=== PATIENT | male | born 1975 | race Caucasian/White ===

== ENCOUNTER 2021-07-01 00:14 | Inpatient (IN) | payer OTHER ==
[2021-07-01] MEDS ORDERED: HEPARIN SODIUM 1,000 UN/ML (10ML VL) IV PRN (00:27)
[2021-07-01] MEDS ORDERED: HYDROmorphone 0.5 MG/0.5 ML SYRINGE IVP STA (00:27)
[2021-07-01] MEDS ORDERED: NITROGLYCERIN-D5W PMX 50 MG in DEXTROSE/WATER 1 250ML.BAG IV ONE ×2 (00:29→08:19)
[2021-07-01] MEDS ORDERED: HEPARIN SOD,PORK IN 0.45% NACL 25,000 UNIT in 0.45% NACL 1 250ML.BAG IV SCH (00:30)
--- NOTE | 2021-07-01 00:35 | ED ---
Chest Pain HPI - General Chief Complaint: Chest Pain Stated Complaint: Possible STEMI Time Seen by Provider: 07/01/21 00:27 Source: patient, EMS Mode of arrival: EMS - History of Present Illness Initial Comments: This patient is a 46-year-old man presenting here as a transfer from [facility]. The patient had gone there tonight for chest pain. He arrived there little left are 10 PM. The patient states that he does get chronic intermittent chest pains but this was different in that it was associated with some nausea and diaphoresis. Patient states the pain was 8 out of 10. The patient did have ECG there that showed ST elevations in the anterior leads and he received TNKase 35 mg. Patient was then transferred on heparin drip and nitroglycerin drip. The patient states that his pain has gone down to a 1 out of 10. He states that his nausea and diaphoresis have resolved. The patient does admit to smoking approximately pack and a half of cigarettes per day. MD Complaint: chest pain Onset/Timin -: hour(s) Onset: during rest Pain Location: substernal Pain Radiation: none Severity: severe Severity scale (1-10): 1 Quality: other (Burning) Consistency: constant Improves With: nitroglycerin, medication-other, other Worsens With: nothing Anginal Symptoms: nausea Treatments Prior to Arrival: aspirin, nitroglycerin, other - Related Data On Oral Contraceptives: No Allergies Allergy/AdvReac Type Severity Reaction Status Date / Time No Known Allergies Allergy Verified 07/01/21 00:28 Review of Systems ROS Statement: Those systems with pertinent positive or pertinent negative responses have been documented in the HPI. ROS Other: All systems not noted in ROS Statement are negative. Constitutional: Denies: fever, chills Respiratory: Denies: cough, dyspnea Cardiovascular: Reports: chest pain. Denies: palpitations, orthopnea, edema, syncope Gastrointestinal: Reports: nausea. Denies: abdominal pain, vomiting, diarrhea, melena, hematochezia Genitourinary: Denies: dysuria, hematuria Musculoskeletal: Denies: back pain Skin: Denies: rash Neurological: Denies: headache, weakness Hematological/Lymphatic: Denies: easy bleeding EKG Findings - EKG Comments: EKG Findings:: Q waves in septal leads. T inversions in inferior leads and V4 through V6. - EKG Results: EKG: interpreted by ERMD - Blocks, [place], Hypertrophy, ST Abn: QRS axis and voltage: right axis deviation (+90 to +180) Past Medical History Past Medical History: No Reported History History of Any Multi-Drug Resistant Organisms: None Reported Past Surgical History: No Surgical Hx Reported Past Psychological History: No Psychological Hx Reported Smoking Status: Current every day smoker Past Alcohol Use History: Occasional Past Drug Use History: Cocaine, Marijuana General Exam General appearance: alert, in no apparent distress Head exam: Present: atraumatic, normocephalic Eye exam: Present: normal appearance. Absent: scleral icterus, conjunctival injection ENT exam: Present: normal oropharynx Neck exam: Present: normal inspection Respiratory exam: Present: normal lung sounds bilaterally. Absent: respiratory distress, wheezes, rales, rhonchi, stridor Cardiovascular Exam: Present: regular rate, normal rhythm, normal heart sounds. Absent: systolic murmur, diastolic murmur, rubs, gallop GI/Abdominal exam: Present: soft. Absent: distended, tenderness, guarding, rebound, rigid, mass Extremities exam: Present: normal inspection, normal capillary refill. Absent: pedal edema, calf tenderness Back exam: Present: normal inspection. Absent: CVA tenderness (R), CVA tenderness (L) Neurological exam: Present: alert Skin exam: Present: warm, dry, intact, normal color. Absent: rash Course Vital Signs 07/01/21 00:22 Temperature 98 F Pulse Rate 91 Respiratory 19 Rate Blood Pressure 135/107 O2 Sat by Pulse 99 Oximetry - Reevaluation(s) Reevaluation #1: 07/01/21 00:[address] Taveras. His treatment recommendations are incorporated. They plan to take patient to [facility] first thing in the morning unless his pain intensifies. Disposition Referrals: None,Stated [Primary Care Provider] - 1-2 days
[2021-07-01 00:45] LABS: Basophils # (A) 0.1 k/uL (0-0.2); Basophils % (A) 1 %; Eosinophils # (A) 0.2 k/uL (0-0.7); Eosinophils % (A) 2 %; HCT 43.3 % (39.0-53.0); HGB 14.3 gm/dL (13.0-17.5); Lymphocytes # (A) 1.7 k/uL (1.0-4.8); Lymphocytes % (A) 15 %; MCH 28.9 pg (25.0-35.0); MCV 87.6 fL (80.0-100.0); Monocytes # (A) 0.4 k/uL (0-1.0); Monocytes % (A) 4 %; Neutrophils % (A) 78 %; Platelet Count 195 k/uL (150-450); RBC 4.94 m/uL (4.30-5.90); RDW 13.3 % (11.5-15.5); WBC 11.5 k/uL (3.8-10.6)
[2021-07-01] MEDS ORDERED: METOPROLOL TARTRATE 25 MG TAB PO STA (00:52)
[2021-07-01] MEDS ORDERED: NITROGLYCERIN SL TABS 0.4 MG TAB SUBLINGUAL PRN ×2 (00:54→08:56)
[2021-07-01 00:58] LABS: Prothrombin Time 10.4 sec (9.0-12.0)
[2021-07-01 02:42] LABS: Glucose,Whole Blood 123 mg/dL (75-99)
--- NOTE | 2021-07-01 05:29 | P.HPIM ---
History of Present Illness H&P Date: 07/01/21 Chief Complaint: STEMI 46-year-old male denies any significant past medical history Patient was transferred to a facility from [facility] where he was diagnosed with STEMI he was given TKnase which helped with his chest pain initially was 8 out of 10 in severity dropped to 1, then he was started on heparin drip and nitro drip and was sent to or facility. Radiology consult and recommended left heart cath in the morning Patient claims that he was having intermittent chest pain most epigastric he thought these or indigestion usually not associated with activity. However he does admit to using cocaine occasionally last time he used cocaine was 3-4 days ago. He also admits to heavy tobacco smoking. He denies any other medical history denies any cardiac history or any cardiac workup in the past. Denies any diabetes. However his mom does have diabetes mellitus. With the chest pain patient was experiencing diaphoresis and nausea and heavy breathing. He denies any coughing fevers or chills he denies any trauma denies any recent traveling denies any recent hospitalization denies any abdominal pain changes in his urine or bowel habits Patient was tested for Covid and was negative EKG at our facility still showing T-wave inversion in the inferolateral leads Review of Systems Pertinent positives as noted in HPI. All other systems were reviewed and are negative Past Medical History Past Medical History: GERD/Reflux History of Any Multi-Drug Resistant Organisms: None Reported Past Surgical History: Orthopedic Surgery Additional Past Surgical History / Comment(s): (L) Wrist surg 07/2020 with ORIF (Hardware present Past Anesthesia/Blood Transfusion Reactions: No Reported Reaction Past Psychological History: ADD/ADHD, Depression Smoking Status: Current every day smoker Past Alcohol Use History: Rare Additional Past Alcohol Use History / Comment(s): Quit at age 35 yrs. Past Drug Use History: Cocaine, Marijuana - Past Family History Mother Family Medical History: Diabetes Mellitus Additional Family Medical History / Comment(s): Some type of "gut issue" current being diagnosed. Maternal grandfather had Lung CA with transplant. Medications and Allergies Allergies Allergy/AdvReac Type Severity Reaction Status Date / Time No Known Allergies Allergy Verified 07/01/21 00:28 Physical Exam Vitals: Vital Signs Temp Pulse Resp BP Pulse Ox 07/01/21 01:58 73 19 131/97 97 07/01/21 00:22 98 F 91 19 135/107 99 Intake and Output 06/30/21 06/30/21 07/01/21 14:59 22:59 06:59 Other: Weight 71.5 kg Constitutional: No acute distress, conversant, pleasant Eyes: Anicteric sclerae, moist conjunctiva, Pupils equal round reactive to light ENMT: NC/AT Oropharynx clear, no erythema, or exudates Neck: Supple, FROM, no masses, or JVD No carotid bruits No thyromegaly Lungs: Clear to auscultation Clear to percussion Normal respiratory effort, no accessory muscle use Cardiovascular: Heart regular in rate and rhythm, No murmurs, gallops, or rubs No peripheral edema Abdominal: Soft Nontender, no guarding, rebound or rigidity Abdomen moving with respiration Normoactive bowel sounds No hepatomegaly, No splenomegaly No palpable mass No abdominal wall hernia noted Skin: Normal temperature, tone, texture, turgor No induration No subcutaneous nodules No rash, lesions No ulcers Extremities: No digital cyanosis No clubbing Pedal pulses intact and symmetrical Radial pulses intact and symmetrical No calf tenderness Psychiatric: Alert and oriented to person, place and time Appropriate affect fair judgement Neuro Muscles Strength 5/5 in all 4 extremities Sensation to light touch grossly present throughout Cranial nerves II-XII grossly intact No focal sensory deficits Lymphatics: no palpable cervical or supraclavicular , or inguinal lymph nodes Results CBC & Chem 7: 07/01/21 00:38 Labs: Abnormal Lab Results - Last 24 Hours (Table) 07/01/21 07/01/21 07/01/21 Range/Units 00:38 00:38 02:09 WBC 11.5 H (3.8-10.6) k/uL Neutrophils # 9.0 H (1.3-7.7) k/uL APTT 58.0 H (22.0-30.0) sec POC Glucose (mg/dL) (75-99) mg/dL Troponin I 92.700 H* (0.000-0.034) ng/mL 07/01/21 Range/Units 02:40 WBC (3.8-10.6) k/uL Neutrophils # (1.3-7.7) k/uL APTT (22.0-30.0) sec POC Glucose (mg/dL) 123 H (75-99) mg/dL Troponin I (0.000-0.034) ng/mL Thrombosis Risk Factor Assmnt - Choose All That Apply Each Factor Represents 1 point: Age 41-60 years Other Risk Factors: No Other congenital or acquired thrombophilia - If yes, enter type in comment: No Thrombosis Risk Factor Assessment Total Risk Factor Score: 1 Thrombosis Risk Factor Assessment Level: Low Risk Assessment and Plan Assessment: STEMI Polysubstance abuse GERD Patient status post TKnase Cardiology eval planned left heart cath in the morning Aspirin and statin Beta salvador, lisinopril Heparin drip Nitro drip Monitor vital signs Cardiac telemetry Elevated troponins EKG showed T wave inversion in inferior lateral leads Avoid nicotine replacement therapy until after left heart cath due to possibility of increase cardiac oxygen demand and heartrate Check urine drug screen PPI twice a day Anticipated length of stay more than 2 midnights anticipated discharge to home DVT PPX on heparin drip per [facility]
[2021-07-01] MEDS ORDERED: CALCIUM CARBONATE LIQUID 500 MG/5 ML CUP PO PRN (06:40)
[2021-07-01] MEDS: ACETAMINOPHEN TAB 325 MG TAB PO PRN ×2 (06:45→11:58)
[2021-07-01] MEDS ORDERED: ASPIRIN 81 MG PO STA (06:53)
[2021-07-01] MEDS ORDERED: ATORVASTATIN 80 MG TAB PO STA (06:54)
[2021-07-01] MEDS ORDERED: HEPARIN SODIUM,PORCINE 10,000 UNIT in SODIUM CHLORIDE 0.9% 1,000 ML IRRIGATION PRN (07:00)
[2021-07-01] MEDS: PANTOPRAZOLE 40 MG TABLET PO SCH ×2 (07:00→18:21)
[2021-07-01] MEDS ORDERED: HEPARIN SODIUM,PORCINE 2,500 UNIT in SODIUM CHLORIDE 0.9% 250 ML IRRIGATION PRN (07:00)
[2021-07-01] MEDS ORDERED: ASPIRIN 325 MG TAB PO STA (07:11)
[2021-07-01] MEDS ORDERED: ALPRAZolam 0.25 MG TAB PO PRN (07:11)
[2021-07-01] MEDS ORDERED: SODIUM CHLORIDE 0.9% 1,000 ML in EMPTY BAG 1 BAG IV ONE (07:11)
[2021-07-01] MEDS ORDERED: ALPRAZolam 0.5 MG TAB PO PRN (07:11)
--- NOTE | 2021-07-01 07:32 | P.CRDCN ---
History of Present Illness History of present illness: This is Dr. Taveras dictating a consult on this patient The patient was interviewed and examined IMPRESSION / ASSESSMENT: Anterolateral ST elevation DC Received thrombolytic therapy at [place] [facility] resolution of chest discomfort with improvement in EKGs and development of reperfusion arrhythmia with aVR His pain improved in 30 minutes following thrombolytic therapy Regular cocaine and marijuana use, last cocaine use Monday Current smoker No family history of premature CAD No known hypertension or diabetes PLAN: I discussed this with the patient as well as with Dr. Lizarraga We will be proceeding to the chronic Wet [employer] Machine to and possible coronary stenting Antiplatelet therapy, heparin, statins and beta blockers HPI this is a 46-year-old male patient who started experiencing chest discomfort yesterday while sitting on the couch. He went to [facility] He received TNKtpa thrombolytic therapy for ST elevation anterolateral DC I received a call from the ER saying that this gentleman was being transferred from [place] to our ER Later when he arrived his ST segments have improved according to the ER physician Dr. Gonsales. He had minimal discomfort in the mid chest a significant improvement from when he started experiencing chest discomfort. When I evaluated him he was complaining of minimal discomfort 110 in the mid chest He said that after he received the clotbusting agent it took about 30 minutes with the pain to subside but thereafter he has not had any worsening of pain His heart rate and blood pressure are normal He is resting comfortably in bed he has no respiratory distress He denies any history of hypertension or diabetes but he does not see any physician He smoker He uses cocaine and marijuana Last cocaine use was last Monday ROS: No fever chills or rigors, no cough, phlegm or expectoration, no nausea, vomiting or diarrhea, no hematuria, dysuria, no musculoskeletal complaints, no strokes or seizures, no skin lesions. EXAMINATION: Pulse rate in the 70s, blood pressure 140/80 mmHg stable Heart sounds are normal normal S1 normal S2 no murmurs or gallops or rub Breath sounds are clear no rhonchi no crackles Abdomen soft nontender Extremities warm no edema No JVD No orthopnea REVIEW OF LABS, ECG & MEDICAL DATA Coronavirus PCR negative Elevated troponins 22 and 125 consistent with successful thrombolytic therapy with a troponin was up Past Medical History Past Medical History: GERD/Reflux History of Any Multi-Drug Resistant Organisms: None Reported Past Surgical History: Orthopedic Surgery Additional Past Surgical History / Comment(s): (L) Wrist surg 07/2020 with ORIF (Hardware present Past Anesthesia/Blood Transfusion Reactions: No Reported Reaction Past Psychological History: ADD/ADHD, Depression Smoking Status: Current every day smoker Past Alcohol Use History: Rare Additional Past Alcohol Use History / Comment(s): Quit at age 35 yrs. Past Drug Use History: Cocaine, Marijuana - Past Family History Mother Family Medical History: Diabetes Mellitus Additional Family Medical History / Comment(s): Some type of "gut issue" current being diagnosed. Maternal grandfather had Lung CA with transplant. Medications and Allergies Allergies Allergy/AdvReac Type Severity Reaction Status Date / Time No Known Allergies Allergy Verified 07/01/21 00:28 Physical Exam Vitals: Vital Signs Temp Pulse Resp BP Pulse Ox 07/01/21 06:30 75 17 129/91 95 07/01/21 06:00 71 14 123/98 95 07/01/21 05:30 59 L 14 122/94 95 07/01/21 05:00 67 11 L 123/92 97 07/01/21 04:30 66 12 114/80 96 07/01/21 04:00 65 13 121/85 96 07/01/21 03:30 97.9 F 70 10 L 120/91 99 07/01/21 03:00 78 15 119/85 97 07/01/21 01:58 73 19 131/97 97 07/01/21 00:22 98 F 91 19 135/107 99 Intake and Output 06/30/21 07/01/21 07/01/21 22:59 06:59 14:59 Intake Total 218.55 Output Total 0 Balance 218.55 Intake: IV 200 0.9 NaCl- 200 Intake, IV Titration 18.55 Amount Nitroglycerin-D5w Pmx 50 18.55 mg In Dextrose/Water 1 250ml.bag @ 10 MCG/MIN 3 mls/hr IV .Q24H ONE Rx#: [id number] Oral 0 Output: Urine 0 Other: Weight 71.5 kg Results 07/01/21 00:38 Cardiac Enzymes 07/01/21 07/01/21 Range/Units 02:09 03:31 Troponin I 92.700 H* 125.000 H* (0.000-0.034) ng/mL Coagulation 07/01/21 07/01/21 Range/Units 00:38 06:30 PT 10.4 (9.0-12.0) sec APTT 58.0 H 27.5 (22.0-30.0) sec CBC 07/01/21 Range/Units 00:38 WBC 11.5 H (3.8-10.6) k/uL RBC 4.94 (4.30-5.90) m/uL Hgb 14.3 (13.0-17.5) gm/dL Hct 43.3 (39.0-53.0) % Plt Count 195 (150-450) k/uL Current Medications Generic Name Dose Route Start Last Admin Trade Name Freq PRN Reason Stop Dose Admin Acetaminophen 650 mg 07/01/21 06:40 07/01/21 06:45 Acetaminophen Tab 325 Mg Tab PO 650 mg Q4HR PRN Administration Fever and/ or Pain Alprazolam 0.25 mg 07/01/21 07:11 Alprazolam 0.25 Mg Tab PO Q6HR PRN Mild Anxiety Alprazolam 0.5 mg 07/01/21 07:11 Alprazolam 0.5 Mg Tab PO Q6HR PRN Moderate Anxiety Aspirin 81 mg 07/02/21 09:00 Aspirin 81 Mg PO DAILY [facility] Atorvastatin Calcium 80 mg 07/02/21 21:00 Atorvastatin 80 Mg Tab PO HS [facility] Calcium Carbonate/Glycine 500 mg 07/01/21 06:40 Calcium Carbonate Liquid 500 Mg/5 Ml Cup PO ACHS PRN Heartburn Heparin Sodium (Porcine) 0 unit 07/01/21 00:27 Heparin Sodium 1,000 Un/Ml (10ml Vl) IV PER PROTOCOL PRN Low PTT Protocol Heparin Sodium/Sodium Chloride 250 mls @ 8.165 mls/hr 07/01/21 00:30 07/01/21 01:01 25,000 unit/ Sodium Chloride IV 12 units/kg/hr .Q24H HEATHER 8.165 mls/hr Administration Protocol 12 UNITS/KG/HR Nitroglycerin/Dextrose 50 mg/ 250 mls @ 3 mls/hr 07/01/21 00:29 07/01/21 06:59 IV Solution IV 07/02/21 00:28 5 mcg/min .Q24H ONE 1.5 mls/hr Titration Protocol 10 MCG/MIN Heparin Sodium (Porcine) 10, 1,001 mls @ 999 mls/hr 07/01/21 07:00 000 unit/ Sodium Chloride IRRIGATION 07/01/21 20:00 ONCE PRN INTRA-OP Heparin Sodium (Porcine) 2,500 250.5 mls @ 250 mls/hr 07/01/21 07:00 unit/ Sodium Chloride IRRIGATION 07/01/21 20:00 ONCE PRN INTRA-OP Lisinopril 10 mg 07/01/21 09:00 Lisinopril 10 Mg Tab PO DAILY [facility] Metoprolol Tartrate 25 mg 07/01/21 09:00 Metoprolol Tartrate 25 Mg Tab PO BID [facility]ATHER Nitroglycerin 0.4 mg 07/01/21 00:54 Nitroglycerin Sl Tabs 0.4 Mg Tab SUBLINGUAL Q5M PRN Chest Pain Pantoprazole Sodium 40 mg 07/01/21 07:30 07/01/21 07:00 Pantoprazole 40 Mg Tablet PO 40 mg AC-BID HEATHER Administration Intake and Output 06/30/21 07/01/21 07/01/21 22:59 06:59 14:59 Intake Total 218.55 Output Total 0 Balance 218.55 Intake: IV 200 0.9 NaCl- 200 Intake, IV Titration 18.55 Amount Nitroglycerin-D5w Pmx 50 18.55 mg In Dextrose/Water 1 250ml.bag @ 10 MCG/MIN 3 mls/hr IV .Q24H ONE Rx#: [id number] Oral 0 Output: Urine 0 Other: Weight 71.5 kg 07/01/21 00:38
[2021-07-01] MEDS ORDERED: HEPARIN SODIUM 1,000 UN/ML (10ML VL) ONE (07:53)
[2021-07-01] MEDS ORDERED: fentaNYL (PF) 50 MCG/ML 2 ML AMP ONE (07:54)
[2021-07-01] MEDS ORDERED: ONDANSETRON 4 MG/2 ML VIAL IVP ONE (08:02)
[2021-07-01] MEDS ORDERED: IV FLUID CONTINUATION 800 ML IV ONE (08:03)
[2021-07-01] MEDS ORDERED: fentaNYL (PF) 50 MCG/ML 2 ML AMP IV ONE (08:07)
[2021-07-01] MEDS ORDERED: LIDOCAINE 1% INJ 10MG/ML (20 ML MDV) SQ ONE (08:08)
[2021-07-01] MEDS ORDERED: VERAPAMIL SYRINGE (5 MG/10 ML) INTRAARTER ONE (08:10)
[2021-07-01] MEDS ORDERED: MIDAZOLAM 2 MG/2 ML VIAL IV ONE (08:14)
[2021-07-01] MEDS ORDERED: CLOPIDOGREL 75 MG TAB ONE (08:22)
[2021-07-01] MEDS ORDERED: CLOPIDOGREL 75 MG TAB PO ONE (08:24)
[2021-07-01] MEDS: HEPARIN SODIUM 1,000 UN/ML (10ML VL) IV ONE ×2 (08:24→08:32)
[2021-07-01] MEDS ORDERED: IOPAMIDOL-370 125ML BTL INJ ONE (08:36)
[2021-07-01] MEDS ORDERED: ATROPINE SULFATE 0.1 MG/ML 10ML SYRINGE IV PRN (08:56)
[2021-07-01] MEDS ORDERED: MAG HYDROX/AL HYDROX/SIMETH 30 ML CUP PO PRN (08:56)
[2021-07-01] MEDS ORDERED: ZOLPIDEM 5 MG TAB PO PRN (08:56)
[2021-07-01] MEDS ORDERED: RX INFO: IV CONTRAST WAS GIVEN 1 EACH MISC MISCELLANE PRN (08:56)
[2021-07-01] MEDS ORDERED: lisinopriL 10 MG TAB PO SCH (09:00)
[2021-07-01] MEDS ORDERED: SODIUM CHLORIDE 0.9% 1,000 ML IV SCH (09:00)
[2021-07-01] MEDS: lisinopriL 5 MG TAB PO SCH (10:16)
[2021-07-01] MEDS: METOPROLOL TARTRATE 25 MG TAB PO SCH ×2 (10:16→20:11)
[2021-07-01] MEDS: SPIRONOLACTONE 25 MG TAB PO SCH (10:16)
[2021-07-01] MEDS: ASPIRIN 81 MG PO SCH (10:16)
--- NOTE | 2021-07-01 10:46 | CC ---
CARDIAC CATHETERIZATION REPORT Mr. Greene is a 46-year-old male with known history of chronic tobacco use, history of drug use, who presented to [facility] with an acute anterior myocardial infarction, received thrombolytics and was transferred to [facility]. He was evaluated by Dr. Taveras, was having persistent chest discomfort. In view of that, recommendation was made regarding cardiac catheterization. The procedure as well as the risks and the complications were discussed with the patient who is in full understanding and agreement. DESCRIPTION OF PROCEDURE: Patient was brought to laboratory helper. He was prepped and draped in conventional fashion. He received Benadryl and fentanyl, achieved moderate conscious state. Following that, using Xylocaine anesthesia and Seldinger technique, a 6-Honduran sheath was introduced in the right radial artery. Selective right and left coronary angiography performed using 5-Honduran 3.5 bend right and left Marcelo catheter. Multiple views of the coronary artery including hemiaxial views were obtained. Following that, angioplasty and stenting was performed. Following that, a 5-Honduran tight pigtail catheter was introduced into the left ventricle and left ventricular end-diastolic pressure was calculated. Following that, catheter and sheath were removed. Hemostasis was obtained with deployment of a TR band. There was no immediate complication. Patient is returned to his room in stable condition. Of note, the patient received intra-arterial verapamil. FINDINGS: LEFT MAIN: This is a large-sized vessel bifurcating into left circumflex, left anterior descending coronary artery, left main artery has no evidence of high-grade stenosis. LEFT ANTERIOR DESCENDING ARTERY: This is a large-sized vessel reaching towards the apex with a wraparound apex segment giving rise to 2 diagonal branches. The left anterior descending artery proximally has an eccentric hazy 90% plaque. The rest of the vessel has no high-grade stenosis. LEFT CIRCUMFLEX: This is a nondominant vessel giving rise to the obtuse marginal branches. The left circumflex as well as branches have no evidence of obstructive disease. RIGHT CORONARY ARTERY: This is a large dominant vessel bifurcating into PDA and posterolateral segment branches. The right coronary artery as well as branches have no evidence of obstructive disease. LEFT VENTRICULOGRAM: Left ventriculogram not performed. HEMODYNAMICS: There was no gradient across the aortic valve. The left ventricular end diastolic pressure was 32-36 mmHg. CONCLUSION: 1. Severe disease involving the proximal LAD in a hazy area. 2. Right dominance. 3. Elevated left ventricular end-diastolic pressure. RECOMMENDATIONS: In view of findings and anatomy, I recommend proceeding with angioplasty and stenting of the LAD. The procedure as well as the risks and the complications were discussed with the patient who is in full understanding and agreement. RAISA / NEO: [id number] /
--- NOTE | 2021-07-01 10:46 | PTCA ---
PERCUTANEOUSTRANS CORORONARY ANGIOGRAPHY Mr. Greene is a 46-year-old male with known history of chronic tobacco use and drug abuse, who presented with an acute myocardial infarction, received thrombolytics and was transferred to [facility] because of the persistent symptoms. He underwent cardiac catheterization and was found to have a critical stenosis involving the proximal LAD. Recommendation was made regarding angioplasty and stenting. The procedure as well as the risks and the complications were discussed with the patient who is in full understanding and agreement. PROCEDURE: A Six-[place] Islander FL 3 and half guiding catheter was introduced into the system. After stenting the left main, a 0.014 balanced medium weight J-wire was advanced across the lesion and positioned distally. Then a 4.0 x 15 mm Xience stent was advanced, deployed and post-dilated at 16 atmospheres. After the last inflation, after appropriate wait, the balloon and the guidewire were withdrawn back in the guiding catheter. Images were obtained repeated. Those images reveal stable successful stenting. At that point, the guiding catheter, the balloon and the guidewire were removed. The left ventricular end- diastolic pressure was calculated. Following that, catheter and sheath were removed. Hemostasis was obtained with deployment of TR band. There was no immediate complication. Patient was returned to his room in stable condition. Of note, the patient received a total of 8000 units of intravenous heparin during the procedure. His ACT was followed and he received 300 mg of oral loading dose of clopidogrel. RESULTS: Successful stenting of the proximal LAD with reduction of stenosis from 90% to 0%. RECOMMENDATIONS: Patient will be continued on aspirin, Plavix, beta salvador, AISSATOU inhibitor, statin. The importance of dual antiplatelet treatment was discussed with the patient. He is in full understanding and agreement. Duration of sedation is 35 minutes. MMODL / IJN: [id number] /
[2021-07-01 11:19] VITALS: BMI 20.7
--- NOTE | 2021-07-01 11:32 | P.PN ---
Progress Note - Text Progress Note Date: 07/01/21 I saw and evaluated the patient independently today. I agree with the documented assessment and plan by my colleague earlier this morning. Pt is s/p LHC with JOSH to LAD, doing well in sinus rhythm with minimal complaints of pain. Reports significant improvement. Ongoing ASA/Plavix, statin, beta-salvador. Pending echo. Continued monitoring in ICU. Radial band in place on right.
[2021-07-01] MEDS ORDERED: ONDANSETRON 4 MG/2 ML VIAL IVP PRN (16:23)
[2021-07-01] MEDS ORDERED: ATORVASTATIN 40 MG TAB PO SCH (21:00)
[2021-07-01 23:51] LABS: LDL Cholesterol,Calculated 95.2 mg/dL (0.0-131.0); VLDL Calculation 15.8 mg/dL (5.00-40.00)
[2021-07-02 04:26] LABS: African American GFR (CKD) >90 (>60 ml/min/1.73 sqM); Anion Gap 4 mmol/L; Blood Urea Nitrogen 7 mg/dL (9-20); Calcium 8.9 mg/dL (8.4-10.2); Carbon Dioxide 29 mmol/L (22-30); Chloride 103 mmol/L (98-107); Glucose 125 mg/dL (74-99); Non-African American GFR(CKD) >90 (>60 ml/min/1.73 sqM); Potassium 3.9 mmol/L (3.5-5.1); Prothrombin Time 10.6 sec (9.0-12.0); Sodium 136 mmol/L (137-145)
[2021-07-02 04:35] LABS: Basophils # (A) 0.1 k/uL (0-0.2); Basophils % (A) 1 %; Eosinophils # (A) 0.2 k/uL (0-0.7); Eosinophils % (A) 2 %; HCT 45.3 % (39.0-53.0); HGB 15.1 gm/dL (13.0-17.5); Lymphocytes # (A) 2.7 k/uL (1.0-4.8); Lymphocytes % (A) 26 %; MCH 28.5 pg (25.0-35.0); MCHC 33.4 g/dL (31.0-37.0); MCV 85.5 fL (80.0-100.0); Mean Platelet Volume 8.3; Monocytes # (A) 0.6 k/uL (0-1.0); Monocytes % (A) 6 %; Neutrophils # (A) 6.6 k/uL (1.3-7.7); Neutrophils % (A) 64 %; Platelet Count 223 k/uL (150-450); RDW 13.8 % (11.5-15.5); WBC 10.3 k/uL (3.8-10.6)
[2021-07-02] MEDS: PANTOPRAZOLE 40 MG TABLET PO SCH ×2 (06:56→17:01)
[2021-07-02] MEDS: METOPROLOL TARTRATE 25 MG TAB PO SCH ×2 (08:21→20:26)
[2021-07-02] MEDS: CLOPIDOGREL 75 MG TAB PO SCH (08:22)
[2021-07-02] MEDS: ASPIRIN 81 MG PO SCH (08:22)
[2021-07-02] MEDS: lisinopriL 5 MG TAB PO SCH (08:22)
[2021-07-02] MEDS: SPIRONOLACTONE 25 MG TAB PO SCH (08:23)
--- NOTE | 2021-07-02 08:41 | ECHOF ---
Referral Reason:mi MEASUREMENTS -------- HEIGHT: 185.4 cm WEIGHT: 66.2 kg BP: 113/90 RVIDd: 3.2 cm (< 3.3) IVSd: 1.1 cm (0.6 - 1.1) LVIDd: 4.6 cm (3.9 - 5.3) LVPWd: 1.1 cm (0.6 - 1.1) IVSs: 1.1 cm LVIDs: 3.4 cm LVPWs: 1.4 cm LAESV Index (A-L): 16.16 ml/m Ao Diam: 2.5 cm (2.0 - 3.7) AV Cusp: 1.7 cm (1.5 - 2.6) LA Diam: 2.7 cm (2.7 - 3.8) MV EXCURSION: 13.874 mm (> 18.000) MV EF SLOPE: 107 mm/s (70 - 150) EPSS: 1.1 cm MV E Cedrick: 0.71 m/s MV DecT: 131 ms MV A Cedrick: 0.92 m/s MV E/A Ratio: 0.77 RAP: 5.00 mmHg RVSP: 14.26 mmHg FINDINGS -------- Sinus rhythm. This was a technically adequate study. The left ventricular size is normal. Left ventricular wall thickness is normal. Overall left vent ricular systolic function is mild-moderately impaired with, an EF between 40 - 45 %. The diastolic filling pattern indicates impaired relaxation 10.04. Mid anterior LV wall motion is hypokinetic. Apical anterior LV wall motion is hypokinetic. Apical lateral LV wall motion is hypokinetic. A pical septum LV wall motion is hypokinetic. The right ventricle is normal in size. Normal LA size by volume 22+/-6 ml/m2. The right atrial size is normal. Interatrial and interventricular septum intact. The aortic valve is trileaflet, and appears structurally normal. No aortic stenosis or regurgitation. The mitral valve is normal. There is trace to mild mitral regurgitation. The tricuspid valve appears structurally normal. Mild tricuspid regurgitation present. Right vent ricular systolic pressure is normal at < 35 mmHg. The right ventricular systolic pressure, as measu red by Doppler, is 14.26mmHg. There is no pulmonic regurgitation present. The aortic root size is normal. Normal inferior vena cava with normal inspiratory collapse consistent with estimated right atrial pre ssure of 5 mmHg. There is no pericardial effusion. CONCLUSIONS -------- 1. Left ventricular wall thickness is normal. 2. Overall left ventricular systolic function is mild-moderately impaired with, an EF between 40 - 45 %. 3. Mid anterior LV wall motion is hypokinetic. 4. Apical anterior LV wall motion is hypokinetic. 5. Apical lateral LV wall motion is hypokinetic. 6. Apical septum LV wall motion is hypokinetic. 7. Normal LA size by volume 22+/-6 ml/m2. 8. The aortic valve is trileaflet, and appears structurally normal. No aortic stenosis or regurgitati on. 9. There is trace to mild mitral regurgitation. 10. Mild tricuspid regurgitation present. JETTING MACHINE OPERATOR: Misty Hodges RDCS
[2021-07-02] MEDS ORDERED: ASPIRIN 81 MG PO SCH (09:00)
[2021-07-02] MEDS ORDERED: ASPIRIN 325 MG TAB PO SCH (09:00)
--- NOTE | 2021-07-02 09:22 | P.PN ---
Subjective Progress Note Date: 07/02/21 HISTORY OF PRESENT ILLNESS: This is a 46-year-old male who underwent cardiac cath yesterday with Dr. Lizarraga. Patient had PCI to the LAD. Patient examined this morning at the bedside in the intensive care unit. He denies chest pain or pressure. Denies shortness of breath. Echocardiogram completed reveals EF 40-45%, Mid anterior, apical anterior, apical lateral, and apical septal and LV wall hypokinesis, trace to mild MR, and mild TR. Vital signs are stable. Telemetry reveals sinus mechanism with a heart rate in the 70s at the time of my examination. PHYSICAL EXAM: VITAL SIGNS: Reviewed. GENERAL: Well-developed in no acute distress. NECK: Supple. No JVD or thyromegaly LUNGS: Respirations even and unlabored. Lungs essentially clear to auscultation bilaterally. HEART: Regular rate and rhythm. S1 and S2 heard. EXTREMITIES: Normal range of motion. No clubbing or cyanosis. Peripheral pulses intact. No lower extremity edema. Right radial cath site with pulse present. ASSESSMENT: STEMI, s/p thrombolytics and PCI to LAD Ischemic cardiomyopathy Hypertension Diabetes Nicotine dependence Marijuana use Cocaine use PLAN: Continue current cardiac medications including aspirin, plavix, lipitor, lisinopril, and metoprolol Smoking cessation recommended Abstinence from drug use encouraged Patient may be transferred to the cardiac stepdown unit Further recommendations pending patient's course Nurse practitioner note has been reviewed by physician. Signing provider agrees with the documented findings, assessment, and plan of care. Objective - Vital Signs Vital signs: Vital Signs Temp 98.3 F 07/02/21 00:00 Pulse 101 H 07/02/21 07:00 Resp 12 07/02/21 07:00 BP 113/90 07/02/21 07:00 Pulse Ox 95 07/02/21 07:00 Intake & Output 07/01/21 07/02/21 07/02/21 18:59 06:59 18:59 Intake Total 525 240 Output Total 0 1250 Balance 525 -1250 240 Weight 71.5 kg 66.5 kg Intake: IV 525 0.9 NaCl- 425 Oral 240 Output: Urine 0 1250 Other: Voiding Method Urinal Urinal # Voids 1 - Labs CBC & Chem 7: 07/02/21 03:57 07/02/21 03:57 Labs: Abnormal Lab Results - Last 24 Hours (Table) 07/01/21 07/01/21 07/01/21 Range/Units 10:20 10:20 13:23 Sodium (137-145) mmol/L BUN (9-20) mg/dL Glucose (74-99) mg/dL Troponin I 91.300 H* 55.100 H* (0.000-0.034) ng/mL HDL Cholesterol 37.0 L (40.0-60.0) mg/dL 07/02/21 Range/Units 03:57 Sodium 136 L (137-145) mmol/L BUN 7 L (9-20) mg/dL Glucose 125 H (74-99) mg/dL Troponin I (0.000-0.034) ng/mL HDL Cholesterol (40.0-60.0) mg/dL
--- NOTE | 2021-07-02 12:26 | P.PN ---
Subjective Progress Note Date: 07/02/21 No new complaints today. Nausea is resolved. Pain is significantly improved. Objective - Vital Signs Vital signs: Vital Signs Temp 98.3 F 07/02/21 00:00 Pulse 101 H 07/02/21 07:00 Resp 12 07/02/21 07:00 BP 113/90 07/02/21 07:00 Pulse Ox 95 07/02/21 07:00 Intake & Output 07/01/21 07/02/21 07/02/21 18:59 06:59 18:59 Intake Total 525 240 Output Total 0 1250 Balance 525 -1250 240 Weight 71.5 kg 66.5 kg Intake: IV 525 0.9 NaCl- 425 Oral 240 Output: Urine 0 1250 Other: Voiding Method Urinal Urinal # Voids 1 - Exam Gen: awake, alert HEENT: normocephalic, atraumatic, good hearing acuity, moist mucous membranes Resp: good air exchange, breathing comfortably with no accessory muscle use CVS: good distal perfusion x 4, GI: soft, NTTP, ND : no SPT, no CVAT, valentino catheter not present MSK: no pitting edema, no clubbing Neuro: non-focal, moving all extremities Psych: cooperative, euthymic mood - Labs CBC & Chem 7: 07/02/21 03:57 07/02/21 03:57 Labs: Abnormal Lab Results - Last 24 Hours (Table) 07/01/21 07/01/21 07/02/21 Range/Units 10:20 13:23 03:57 Sodium 136 L (137-145) mmol/L BUN 7 L (9-20) mg/dL Glucose 125 H (74-99) mg/dL Troponin I 55.100 H* (0.000-0.034) ng/mL HDL Cholesterol 37.0 L (40.0-60.0) mg/dL Assessment and Plan Assessment: STEMI Polysubstance abuse GERD Patient status post TKnase Cardiology eval planned left heart cath, now s/p JOSH to LAD Aspirin and statin Beta salvador, lisinopril Cardiac telemetry Transfer to floor, with anticipation of d/c tomorrow AM Echo demonstrated WMA in LAD distribution, EF 40-45% Anticipated length of stay more than 2 midnights anticipated discharge to home DVT PPX
[2021-07-02 18:00] LABS: Chol/HDL Ratio 5.03; LDL Cholesterol,Calculated 103.4 mg/dL (0.0-131.0); VLDL Calculation 25.6 mg/dL (5.00-40.00)
[2021-07-02] MEDS ORDERED: ATORVASTATIN 80 MG TAB PO SCH (21:00)
[2021-07-03 05:07] VITALS: RESP 16
[2021-07-03] MEDS: PANTOPRAZOLE 40 MG TABLET PO SCH ×2 (06:11→17:32)
[2021-07-03] MEDS: ASPIRIN 81 MG PO SCH (08:07)
[2021-07-03] MEDS: lisinopriL 5 MG TAB PO SCH (08:07)
[2021-07-03] MEDS: METOPROLOL TARTRATE 25 MG TAB PO SCH (08:07)
[2021-07-03] MEDS: CLOPIDOGREL 75 MG TAB PO SCH (08:08)
[2021-07-03] MEDS: SPIRONOLACTONE 25 MG TAB PO SCH (08:08)
--- NOTE | 2021-07-03 15:46 | P.PN ---
Subjective Progress Note Date: 07/03/21 HISTORY OF PRESENT ILLNESS: This is a 46-year-old male who underwent cardiac cath yesterday with Dr. Lizarraga. Patient had PCI to the LAD. Patient examined this morning at the bedside in the intensive care unit. He denies chest pain or pressure. Denies shortness of breath. Echocardiogram completed reveals EF 40-45%, Mid anterior, apical anterior, apical lateral, and apical septal and LV wall hypokinesis, trace to mild MR, and mild TR. Vital signs are stable. Telemetry reveals sinus mechanism with a heart rate in the 70s at the time of my examination. 07/03/2021 Patient denies any chest pain or shortness of breath. He denies any lightheadedness or dizziness. No nausea. Medications have been reviewed and new medication sent to his pharmacy. Heart rate is running a 5670s, blood pressure 105/68, pulse ox 100% on room air. PHYSICAL EXAM: VITAL SIGNS: Reviewed. GENERAL: Well-developed in no acute distress. NECK: Supple. No JVD or thyromegaly LUNGS: Respirations even and unlabored. Lungs essentially clear to auscultation bilaterally. HEART: Regular rate and rhythm. S1 and S2 heard. EXTREMITIES: Normal range of motion. No clubbing or cyanosis. Peripheral pulses intact. No lower extremity edema. Right radial cath site with pulse present. ASSESSMENT: STEMI, s/p thrombolytics and PCI to LAD Ischemic cardiomyopathy Hypertension Diabetes Nicotine dependence Marijuana use Cocaine use PLAN: Continue current cardiac medications including aspirin, plavix, lipitor, lisinopril, and metoprolol--prescriptions have been sent to his pharmacy Smoking cessation recommended Abstinence from drug use encouraged Patient is cleared for discharge home today. Plan follow-up with Dr. Taveras in the office Further recommendations pending patient's course Nurse practitioner note has been reviewed by physician. Signing provider agrees with the documented findings, assessment, and plan of care. Objective - Vital Signs Vital signs: Vital Signs Temp 97.9 F 07/02/21 20:00 Pulse 50 L 07/03/21 12:00 Resp 16 07/03/21 12:00 BP 105/68 07/03/21 12:00 Pulse Ox 100 07/03/21 12:00 Intake & Output 07/02/21 07/03/21 07/03/21 18:59 06:59 18:59 Intake Total 680 350 118 Output Total 850 Balance -170 350 118 Weight 63 kg Intake: Oral 680 350 118 Output: Urine 850 Other: Voiding Method Urinal Urinal Urinal # Voids 1 - Labs CBC & Chem 7: 07/02/21 03:57 07/02/21 03:57 Labs: Abnormal Lab Results - Last 24 Hours (Table) 07/02/21 Range/Units 03:57 HDL Cholesterol 32.0 L (40.0-60.0) mg/dL
[2021-07-03 16:30] VITALS: BP 100/65; PULSE 69; TEMP 97.6
--- NOTE | 2021-07-03 16:56 | P.DS ---
Providers Date of admission: 07/01/21 00:54 Expected date of discharge: 07/03/21 Attending physician: Khurram Bird MD Consults: 07/01/21 00:54 Consult Physician Urgent Consulting Provider: Kristian Taveras Consult Reason/Comments: STEMI Do you want consulting provider notified?: Already Contacted 07/01/21 08:56 Consult Physician Routine Consulting Provider: [facility] Consult Reason/Comments: Post Interventional patient Do you want consulting provider notified?: Already Contacted Primary care physician: [facility] Course: STEMI Polysubstance abuse GERD Pt admitted for STEMI. 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 Started on ASA, statin, beta salvador. Pt did well following procedure, and pain has completely resolved. Pts echo demonstrated EF 40-45% and WMA in LAD distribution. Pt to f/u with cardiology, and will establish PCP. Smoking cessation counseling given. Assessment: Gen: awake, alert HEENT: normocephalic, atraumatic, good hearing acuity, moist mucous membranes Resp: good air exchange, breathing comfortably with no accessory muscle use CVS: good distal perfusion x 4, GI: soft, NTTP, ND : no SPT, no CVAT, valentino catheter not present MSK: no pitting edema, no clubbing Neuro: non-focal, moving all extremities Psych: cooperative, euthymic mood Patient Condition at Discharge: Good Plan - Discharge Summary Discharge Rx Participant: No New Discharge Prescriptions: New Spironolactone [Aldactone] 25 mg PO DAILY #30 tab Aspirin 81 mg PO DAILY tab Nitroglycerin Sl Tabs [Nitrostat] 0.4 mg SUBLINGUAL Q5M PRN #25 tab PRN Reason: Chest Pain lisinopriL [Zestril] 5 mg PO DAILY #30 tab Atorvastatin [Lipitor] 80 mg PO HS #30 tab Metoprolol Tartrate [Lopressor] 25 mg PO BID #60 tab Clopidogrel [Plavix] 75 mg PO DAILY #30 tab Discharge Medication List Aspirin 81 mg PO DAILY tab 07/03/21 [Rx] Atorvastatin [Lipitor] 80 mg PO HS #30 tab 07/03/21 [Rx] Clopidogrel [Plavix] 75 mg PO DAILY #30 tab 07/03/21 [Rx] Metoprolol Tartrate [Lopressor] 25 mg PO BID #60 tab 07/03/21 [Rx] Nitroglycerin Sl Tabs [Nitrostat] 0.4 mg SUBLINGUAL Q5M PRN #25 tab 07/03/21 [Rx] Spironolactone [Aldactone] 25 mg PO DAILY #30 tab 07/03/21 [Rx] lisinopriL [Zestril] 5 mg PO DAILY #30 tab 07/03/21 [Rx] Follow up Appointment(s)/Referral(s): Kristian Taveras MD [STAFF PHYSICIAN] - 1 Week Arias Staley MD [Primary Care Provider] - 1-2 Days Discharge Disposition: HOME SELF-CARE
== END 2021-07-03 18:06 | disposition home or self-care (01) | DRG 247 ==
LOC: EC 00:14 → 2SICU 00:54 → 3SCARD 07-02 15:12
PROVIDERS: ADMIT Internal Medicine; ATTEND Internal Medicine
PROC: B2111ZZ Fluoroscopy of Multiple Coronary Arteries using Low Osmolar Contrast (ICD-10-PCS; 2021-07-01)
PROC: 027034Z Dilation of Coronary Artery, One Artery with Drug-eluting Intraluminal Device, Percutaneous Approach (ICD-10-PCS; principal; 2021-07-01 09:30)
PROC: 4A023N7 Measurement of Cardiac Sampling and Pressure, Left Heart, Percutaneous Approach (ICD-10-PCS; 2021-07-01 09:30)
DX: I21.09 ST elevation (STEMI) myocardial infarction involving other coronary artery of anterior wall (principal); E11.9 Type 2 diabetes mellitus without complications; F17.210 Nicotine dependence, cigarettes, uncomplicated; F32.9 Major depressive disorder, single episode, unspecified; F90.9 Attention-deficit hyperactivity disorder, unspecified type; Z20.822 Contact with and (suspected) exposure to COVID-19; I10 Essential (primary) hypertension; I25.5 Ischemic cardiomyopathy; K21.9 Gastro-esophageal reflux disease without esophagitis; Z80.1 Family history of malignant neoplasm of trachea, bronchus and lung; Z83.3 Family history of diabetes mellitus; F14.90 Cocaine use, unspecified, uncomplicated; F12.90 Cannabis use, unspecified, uncomplicated
CPT/HCPCS: 36415; 80048; 80061; 84484; 85025; 85610; 85730; 87635; 93005; 93306; 93458; 94760; 96374; 99285

== ENCOUNTER → 2024-12-02 | Outpatient (CLI) | payer OTHER ==
--- NOTE | 2024-12-02 12:35 | CA ---
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 ICD-10 Codes: Patient History: Medications: ADAVAN, LISINOPRIL, METOPROLOL Meds past 24 hrs: Pretest Chest Pain: STRESS TEST Chris Protocol Exercise Duration (min:sec): 12:[address] Depressions (mm): Angina Score: Sinclair Score: Resting HR (bpm): 51 Peak HR (bpm): 146 Resting BP (mmHg): 142 / 90 Peak BP (mmHg): 167 / 92 MPHR: 171 Target HR: 145 % MPHR: 85 METS: 12.1 Total Dose: Peak Dose: Atropine: Double Product: 37823 BP Response: Stress Termination: TARGET HR REACHED/MAX EXERTION Stress Symptoms: NO SYMPTOMS Stress Summary: ECG ANALYSIS Resting ECG: Normal sinus rhythm normal axis normal intervals with poor R-wave progression Stress ECG: Patient exercised on Chris protocol for 12 minutes and 45 seconds achieving 85% of predicted maximal heart rate without chest pain or diagnostic ST segment depression CONCLUSIONS Excellent exercise tolerance Negative stress test by EKG criteria Cardiolite portion of the stress test will be reported separately Dr. Amado Barroso MD (Electronically Signed) Final Date: 02 December 2024 12:34
--- NOTE | 2024-12-02 12:39 | NM ---
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 History of heart attack 4 years ago with angioplasty. TECHNIQUE: After the intravenous administration of 10.31 mCi Tc 99m Sestamibi - Rest images obtained 45 minutes post injection. The patient exercised using a LONI protocol and 1 minute prior to peak exercise was injected with 25.5 mCi Tc 99m Sestamibi - Stress images obtained 20 minutes post inject ion. FINDINGS: Targeted heart rate was achieved during performance of the study. Review of stress and rest SPECT nicole ges demonstrates area of concern on the polar maps anteroseptal wall towards the base but this does n ot reproduce short axis and horizontal long axis views. No convincing evidence of reversible ischemia . Gated analysis shows normal wall motion with an estimated left ventricular ejection fraction of 55 %. IMPRESSION: No scintigraphic evidence for reversible ischemia [facility], , 12/02/2024 12:37 PM
== END | disposition home or self-care (01) ==
LOC: RADNMMAIN 08:00
PROVIDERS: ATTEND Internal Medicine Clinical Cardiac Electrophysiology
DX: I25.10 Atherosclerotic heart disease of native coronary artery without angina pectoris (principal); E78.00 Pure hypercholesterolemia, unspecified; I10 Essential (primary) hypertension; I25.2 Old myocardial infarction
CPT/HCPCS: 93017; 78452; A9500